=== PATIENT | female | born 1980 | race African-American/Black ===

== ENCOUNTER 2016-06-13 10:03 | Emergency (ER) | payer BC ==
[~2016-06-13] VITALS: Ht 170.2 cm; Wt 87.0 kg
[2016-06-13 10:21] VITALS: Ht 170.2 cm; Wt 87.0 kg
[2016-06-13] MEDS ORDERED: LIDOCAINE 4% CR TOP ONE (11:00)
[2016-06-13] MEDS ORDERED: LIDOCAINE 1% (MDV) 20 ML INJ SC ONE (11:00)
--- NOTE | 2016-06-13 11:41 | ERD ---
ER Documentation Chief Complaint Date/Time DATE: 06/13/16 TIME: 11:39 Chief Complaint Bartholin's cyst "getting big again" HPI 36-year-old female with history of repeat Bartholin's cyst infection/abscess is complaining of recurrence of the infection. Patient stated that the area has become inflamed and pain for the last 2 days. Patient had received incision and drainage in early March at [facility] ER, and received oral antibiotics. Patient reports continued purulent drainage from the area since that time. Denies fever or chills. ROS All systems reviewed and are negative except as per history of present illness. Medications Home Meds Active Scripts Cephalexin* (Keflex*) 500 Mg Capsule, 500 MG PO QID for 7 Days, CAP Prov:ALLISON DEVI. DATA COMMUNICATIONS ENGINEER 06/13/16 Acetaminophen* (Tylophen*) 500 Mg Capsule, 1 CAP PO Q6H Y for PAIN AND OR ELEVATED TEMP, #20 CAP Prov:ALLISON DEVI. DATA COMMUNICATIONS ENGINEER 06/13/16 Reported Medications [None] No Conflict Check 05/17/09 Allergies Allergies: Coded Allergies: ibuprofen (Verified Allergy, Intermediate, 06/13/16) aspirin (Verified Allergy, Mild, SWELLING, 05/17/09) PMhx/Soc History of Surgery: No Hx Neurological Disorder: No Hx Respiratory Disorders: No Hx Cardiac Disorders: No Hx Miscellaneous Medical Probl: Yes (ASTHMA) Hx Alcohol Use: No Hx Substance Use: No Hx Tobacco Use: No Smoking Status: Never smoker Physical Exam Vitals Vital Signs Date Time Temp Pulse Resp B/P Pulse Ox O2 Delivery O2 Flow Rate FiO2 06/13/16 10:21 98.5 73 16 140/93 100 Physical Exam General impression: Well-developed, well-nourished. Alert, oriented, in no acute distress Head: Normocephalic, atraumatic. Eyes: PERRL, EOM normal. Sclerae are normal. Conjunctiva not injected. Respiration: Normal respiratory effort. Lungs clear to auscultate bilaterally. No wheezes, rales or rhonchi. Cardiovascular: Regular rate and rhythm. No murmurs or extra heart sounds. Abdomen: Abdomen normal to inspection. Nontender. No masses or organomegaly. Bowel sounds normal. : Area of induration and fluctuance noted on the lateral aspect of the right labia majora, multiple scar tissues in the area. Tender to palpation. Small amount of continuous purulent drainage is noted. Neuro: Mental status normal, speech normal. TUBING MACHINE TENDER grossly intact. Skin: Normal turgor. No rash or lesions. Psych: Normal mood and affect. Results 24 hrs Current Medications Medications (Trade) Dose Ordered Sig/Reza Route PRN Reason Start Time Stop Time Status Last Admin Dose Admin Lidocaine (Xylocaine 1% (Mdv) 20 ml) 20 ml ONCE ONCE SC 06/13/16 11:00 06/13/16 11:01 DC Lidocaine (Lmx 4% Plus) 1 applic ONCE ONCE TOP 06/13/16 11:00 06/13/16 11:01 DC Procedures/MDM Procedure note: Incision and Drainage Verbal consent obtained for incision and drainage of patient's abscess. The area was prepped with Betadine. LMX topical cream and lidocaine 1% infiltrate used for local anesthesia. After appropriate anesthesia, 3 incisions were made in 2 separate areas of fluctuance using #11 blade. [] amount of purulent discharge was drained from the abscess. The abscess was probed for loculation. The wound was then cleaned and dressed. Patient tolerated procedure well. Medical decision-making: Well-appearing 36-year-old female with history of recurrent Bartholin's cyst infection return to ED for another episode of infection. There were several areas of fluctuance noted on exam, however, very scant purulent drainage was expressed I&D. I feel patient can benefit from caregivers non medical consult. ULTIMATE HOOPS TRAINER referral list provided for the patient. Patient will be given a course of p.o. antibiotics. Patient appears well, stable for discharge and outpatient management. Medical decision making shared with patient and family. Education provided to patient and family. Patient and family expressed understanding of the plan. Medications on discharge: Tylenol, Keflex. Follow-up: Primary care provider in 2-3 days or return to ED if worse. Departure Diagnosis: Primary Impression: Infected cyst of Bartholin's gland duct Condition: Good Patient Instructions: Bartholin's Cyst (I And D) Referrals: COMM[facility]ITY CL[facility] YOU HAVE RECEIVED A MEDICAL SCREENING EXAM AND THE RESULTS INDICATE THAT YOU DO NOT HAVE A CONDITION THAT REQUIRES URGENT TREATMENT IN THE EMERGENCY DEPARTMENT. FURTHER EVALUATION AND TREATMENT OF YOUR CONDITION CAN WAIT UNTIL YOU ARE SEEN IN YOUR DOCTORS OFFICE WITHIN THE NEXT 1-2 DAYS. IT IS YOUR RESPONSIBILITY TO MAKE AN APPOINTMENT FOR FOLOW-UP CARE. IF YOU HAVE A PRIMARY DOCTOR --you should call your primary doctor and schedule an appointment IF YOU DO NOT HAVE A PRIMARY DOCTOR YOU CAN CALL OUR PHYSICIAN REFERRAL HOTLINE AT IF YOU CAN NOT AFFORD TO SEE A PHYSICIAN YOU CAN CHOSE FROM THE FOLLOWING [facility] [phone] [facility]. [facility] [address] [facility]. [facility] [address] [facility]. [facility] [phone] [facility]. [facility] [address] [facility]. [facility] [address] [place] ULTIMATE HOOPS TRAINER [place] [address] [facility] [address] [place] [address] OFFICE FAX , [address] [address] [place] [address] [facility] [address] [place] [address] [address] [facility] [address] [facility] [facility] [address] [address] [place] [address] [facility] [address] [place], [place] [id number] [address] [facility] [id number] - [address] M[address] [facility]. [address], [facility] [address] [address], [facility] [id number] [address] [address] [place] [address] Additional Instructions: Return to this facility in 2 DAYS for a follow-up exam.Return sooner if your condition worsens. ALLISON DEVI NP Jun 13, 2016 11:41
[2016-06-13] MEDS ORDERED: ACET500C5 PO (12:07)
[2016-06-13] MEDS ORDERED: CEPH-443 PO (12:07)
== END 2016-06-13 12:44 | disposition home or self-care (01) ==
LOC: FTE 10:03
DX: N75.1 Abscess of Bartholin's gland (principal); J45.909 Unspecified asthma, uncomplicated
CPT/HCPCS: 56420; Z7502; Z7610

== ENCOUNTER 2016-08-19 02:09 | Emergency (ER) | payer BC ==
[~2016-08-19] VITALS: Ht 170.2 cm; Wt 89.0 kg
[~2016-08-19 02:09] MED LIST: ACET500C5 PO; CEPH-443 PO
[2016-08-19 02:12] VITALS: Ht 170.2 cm; Wt 89.0 kg
[2016-08-19] MEDS ORDERED: ONDANSETRON 4 MG INJ IV STA (03:50)
[2016-08-19] MEDS ORDERED: morphine 4 MG/ML VIAL IV STA (03:50)
[2016-08-19] MEDS ORDERED: CLINDAMYCIN 600 MG/D5W (PMX) 50 ML IVPB SCH (04:00)
[2016-08-19] MEDS ORDERED: CLIN-73 PO (04:07)
[2016-08-19] MEDS ORDERED: HYDR-902 PO (04:07)
--- NOTE | 2016-08-19 04:29 | ERD ---
ER Documentation Chief Complaint Date/Time DATE: 08/19/16 TIME: 04:26 Chief Complaint Right labial fold pain started today HPI 36-year-old female presents to emergency department for complaints of redness swelling of the right labial fold started today. Patient described the pain as throbbing pain, 8/10 scale, worse upon walking and touching the area. Patient denies any open wounds. Patient denies any purulent discharge. 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 Feels the same. Patient denies any fever or chills. ROS All systems reviewed and are negative except as per history of present illness. Medications Home Meds Active Scripts Hydrocodone/Acetaminophen ([place] 10-325 Tablet) 1 Each Tablet, 1 TAB PO Q6H Y for SEVERE PAIN LEVEL 7-10, #20 TAB Prov:YENNY TANNER MARKET GARDEN WORKER 08/19/16 Clindamycin Hcl* (Clindamycin Hcl*) 300 Mg Capsule, 300 MG PO TID for 10 Days, CAP Prov:YENNY TANNER MARKET GARDEN WORKER 08/19/16 Cephalexin* (Keflex*) 500 Mg Capsule, 500 MG PO QID for 7 Days, CAP Prov:ALLISON DEVI. MARKET GARDEN WORKER 06/13/16 Acetaminophen* (Tylophen*) 500 Mg Capsule, 1 CAP PO Q6H Y for PAIN AND OR ELEVATED TEMP, #20 CAP Prov:ALLISON DEVI. MARKET GARDEN WORKER 06/13/16 Reported Medications [None] No Conflict Check 05/17/09 Allergies Allergies: Coded Allergies: ibuprofen (Verified Allergy, Intermediate, 06/13/16) aspirin (Verified Allergy, Mild, SWELLING, 05/17/09) PMhx/Soc History of Surgery: Yes (cholecystectomy) Hx Neurological Disorder: No Hx Respiratory Disorders: No Hx Cardiac Disorders: No Hx Miscellaneous Medical Probl: Yes (ASTHMA) Hx Alcohol Use: No Hx Substance Use: No Hx Tobacco Use: No Smoking Status: Never smoker FmHx Family History: No coronary disease, No diabetes, No other Physical Exam Vitals Vital Signs Date Time Temp Pulse Resp B/P Pulse Ox O2 Delivery O2 Flow Rate FiO2 08/19/16 02:12 98.7 67 20 140/72 100 Physical Exam GENERAL: The patient is well developed and appropriate for usual state of health, in no apparent distress. CHEST: Clear to auscultation bilaterally. There are no rales, wheezes or rhonchi. HEART: Regular rate and rhythm. No murmurs, clicks, rubs or gallops. No S3 or S4. ABDOMEN: Soft, nontender and nondistended. Good bowel sounds. No rebound or guarding. No gross peritonitis. No gross organomegaly or masses. No Nuno sign or McBurney point tenderness. BACK: No midline or flank tenderness. EXTREMITIES: Equal pulses bilaterally. There is no peripheral clubbing, cyanosis or edema. No focal swelling or erythema. Full range of motion. Grossly neurovascularly intact. NEURO: Alert and oriented. Cranial nerves 2-12 intact. Motor strength in all 4 extremities with 5/5 strength. Sensation grossly intact. Normal speech and gait. SKIN: There is no apparent rash or petechia. The skin is warm and dry. HEMATOLOGIC AND LYMPHATIC: There is no evidence of excessive bruising or lymphedema. No gross cervical, axillary, or inguinal lymphadenopathy. PERINEAL: Noted right labia to be erythematous indurated, tender on palpation, no fluctuance noted, no open wounds noted. No inflamed Bartholin's cyst noted. Results 24 hrs Current Medications Medications (Trade) Dose Ordered Sig/Reza Route PRN Reason Start Time Stop Time Status Last Admin Dose Admin Clindamycin HCl/ Dextrose (Cleocin 600 Mg/ D5W (Pmx)) 50 ml @ 50 mls/hr ONCE IVPB 08/19/16 04:00 08/19/16 04:59 08/19/16 04:22 Morphine Sulfate (morphine) 4 mg ONCE STAT IV 08/19/16 03:50 08/19/16 03:52 DC 08/19/16 04:11 Ondansetron HCl (Zofran Inj) 4 mg ONCE STAT IV 08/19/16 03:50 08/19/16 03:52 DC 08/19/16 04:11 Patient was given medication for pain here in emergency department, after treatment, patient verbalized feeling much better. Patient's pain is improved. Clindamycin was given here in emergency department for treatment of infection. Procedures/MDM Medical decision making: Patient symptoms like is consistent with cellulitis. No symptoms of any abscess at this time. Incision and drainage not indicated at this time. No fluctuance noted. No symptoms of sepsis at this time. Patient upper sores hemodynamically stable. Patient does not have any fever. Patient was given for clindamycin, [place], Zofran stop light warm compress on affected area, for primary care doctor in 2-3 days for reevaluation of symptoms. Patient is advised to return to emergency department for any worsening symptoms. Departure Diagnosis: Primary Impression: Cellulitis Site of cellulitis: other site Qualified Code: L03.818 - Cellulitis of other specified site Condition: Stable Patient Instructions: Cellulitis YENNY TANNER NP Aug 19, 2016 04:29
== END 2016-08-19 05:17 | disposition home or self-care (01) ==
LOC: FTE 02:09
DX: N76.2 Acute vulvitis (principal); J45.909 Unspecified asthma, uncomplicated
CPT/HCPCS: 96374; 96375; 99284; J2270; J2405; Z7610

== ENCOUNTER 2016-08-22 09:57 | Emergency (ER) | payer BC, MEDICAID ==
[~2016-08-22] VITALS: Ht 170.2 cm; Wt 79.8 kg
[~2016-08-22 09:57] MED LIST changes: +CLIN-73 PO; +HYDR-902 PO
[2016-08-22 10:03] VITALS: Ht 170.2 cm; Wt 79.8 kg
--- NOTE | 2016-08-22 10:44 | ERD ---
ER Documentation Chief Complaint Date/Time DATE: 08/22/16 TIME: 10:43 Chief Complaint ABSCESS TO RIGHT LABIA X 4 DAYS HPI This a 36-year-old female who presents to the emergency department today for an abscess in her vagina for the last 6 days. Patient states she has had them in the past. States she was here a few days ago but was given IV antibiotics only and the abscess was not drained. States she has not taken any medication for the pain and states she was supposed to get a prescription for antibiotics but did not receive that prescription. States she has recently changed MANUFACTURING ENGINEER and is waiting for referral. Denies any fevers or chills. ROS All systems reviewed and are negative except as per history of present illness. Medications Home Meds Active Scripts Cephalexin* (Keflex*) 500 Mg Capsule, 500 MG PO QID for 5 Days, CAP Prov:NAS GUPTA PA-C 08/22/16 Sulfamethoxazole/Trimethoprim* (Bactrim Ds* Tablet) 1 Each Tablet, 1 TAB PO BID , #14 TAB Prov:NAS GUPTA PA-C 08/22/16 Hydrocodone/Acetaminophen ([place] 10-325 Tablet) 1 Each Tablet, 1 TAB PO Q6H Y for SEVERE PAIN LEVEL 7-10, #20 TAB Prov:YENNY TANNER NP 08/19/16 Clindamycin Hcl* (Clindamycin Hcl*) 300 Mg Capsule, 300 MG PO TID for 10 Days, CAP Prov:YENNY TANNER NP 08/19/16 Cephalexin* (Keflex*) 500 Mg Capsule, 500 MG PO QID for 7 Days, CAP Prov:ALLISON DEVI NP 06/13/16 Acetaminophen* (Tylophen*) 500 Mg Capsule, 1 CAP PO Q6H Y for PAIN AND OR ELEVATED TEMP, #20 CAP Prov:ALLISON DEVI METAL PUNCH PRESS OPERATOR 06/13/16 Reported Medications [None] No Conflict Check 05/17/09 Allergies Allergies: Coded Allergies: ibuprofen (Verified Allergy, Intermediate, 06/13/16) aspirin (Verified Allergy, Mild, SWELLING, 05/17/09) PMhx/Soc History of Surgery: Yes (cholecystectomy) Hx Neurological Disorder: No Hx Respiratory Disorders: No Hx Cardiac Disorders: No Hx Miscellaneous Medical Probl: Yes (ASTHMA) Hx Alcohol Use: No Hx Substance Use: No Hx Tobacco Use: No Smoking Status: Never smoker Physical Exam Vitals Vital Signs Date Time Temp Pulse Resp B/P Pulse Ox O2 Delivery O2 Flow Rate FiO2 08/22/16 10:03 98.9 126 20 137/96 99 Physical Exam Const: No acute distress Head: Atraumatic Eyes: Normal Conjunctiva ENT: Normal External Ears, Nose and Mouth. Neck: Full range of motion..~ No meningismus. Resp: Clear to auscultation bilaterally Cardio: Regular rate and rhythm, no murmurs Skin: No petechiae or rashes : Vaginal exam Back: No midline or flank tenderness Ext: No cyanosis, or edema Neur: Awake and alert Psych: Normal Mood and Affect Results 24 hrs Current Medications Medications (Trade) Dose Ordered Sig/Reza Route PRN Reason Start Time Stop Time Status Last Admin Dose Admin Lidocaine (Xylocaine 2% (Mdv) 20 ml) 20 ml ONCE ONCE INJ 08/22/16 11:00 08/22/16 11:01 DC Acetaminophen/ Hydrocodone Bitart ([place] (5/325)) 1 tab ONCE ONCE PO 08/22/16 11:00 08/22/16 11:01 DC 08/22/16 10:57 Lidocaine (Lmx 4% Plus) 1 applic ONCE ONCE TOP 08/22/16 11:00 08/22/16 11:01 DC Trimethoprim/ Sulfamethoxazole (Bactrim (Ds)) 1 tab ONCE ONCE PO 08/22/16 12:30 08/22/16 12:31 Cephalexin (Keflex) 500 mg ONCE ONCE PO 08/22/16 12:30 08/22/16 12:31 Procedures/MDM This a 36-year-old female who presents to the emergency department today for an abscess on her vagina. Patient has had multiple Bartholin's cyst in the past and has had them drained. Upon review of patient's medical records patient was seen here days ago and was given IV antibiotics however patient indicated she was not discharged home with any prescriptions for antibiotics. On physical exam LMX cream was placed on the patient Abscess Incision and Drainage with irrigation by Dr. Moreland: Location: right side labia majora Anesthesia: [Local 1% Lidocaine] 10 cc Technique: [11 blade scalpel used to make a 1cm incision in the abscess. Irrigated. Disrupted loculations w/ instrumentation] Packing: [None] Complications: [Neurovascularly intact post procedure] Risks and benefits of the procedure were explained to the patient and they agreed to proceed. Area was prepped in the usual sterile fashion. Patient tolerated the procedure. There were no complications. Patient's skin symptoms have stabilized while they have been evaluated in the department and are appropriate for outpatient care and work up. Exam and w/u not consistent w/ sepsis, deep space infection, or foreign body. 48 hour wound check. Scar minimization instructions given. Patient symptoms at this time is consistent with comp gated abscess given fair amount of scar tissue and recurrent abscesses with likely sinus tracts. Patient may also have hidradenitis suppurativa. We explained this to the patient. Patient was instructed to follow-up with a primary care physician or MANUFACTURING ENGINEER specialist. She was given a dose of Bactrim and Keflex here in the emergency department. She will be given a prescription for home. She was instructed take her [place] for pain that she was ready prescribed. At this time the patient is stable for discharge and outpatient management. Patient should follow up with their PCP in the next 1-2 days. They may return to the emergency department sooner for any persistent or worsening of symptoms. Patient understood and agreed with the plan. Departure Diagnosis: Primary Impression: Complicated abscess Condition: NAS Harvey PA-C Aug 22, 2016 10:44
[2016-08-22] MEDS ORDERED: LIDOCAINE 2% (MDV) 20 ML INJ INJ ONE (11:00)
[2016-08-22] MEDS ORDERED: LIDOCAINE 4% CR TOP ONE (11:00)
[2016-08-22] MEDS ORDERED: HYDROCODONE/APAP (5/325) TAB PO ONE (11:00)
[2016-08-22] MEDS ORDERED: SULF1TAB31 PO (12:17)
[2016-08-22] MEDS ORDERED: CEPH-443 PO (12:17)
[2016-08-22] MEDS ORDERED: TRIMETHOPRIM/SULFAMETHOX (DS) TAB PO ONE (12:30)
[2016-08-22] MEDS ORDERED: CEPHALEXIN 500 MG CAP PO ONE (12:30)
== END 2016-08-22 12:44 | disposition home or self-care (01) ==
LOC: FTE 09:57
DX: N76.4 Abscess of vulva (principal); J45.909 Unspecified asthma, uncomplicated
CPT/HCPCS: 56405; Z7610